=== PATIENT | male | born 1975 | race American Indian/Alaskan Native ===

== ENCOUNTER 2021-01-22 21:35 | Emergency (ER) | payer OTHER ==
--- NOTE | 2021-01-22 22:36 | Emergency Department Report ---
ED Eye Problem HPI - General Stated complaint: EYE SWELLING - History of Present Illness Initial comments: Patient is a 45-year-old -[place] male with a history of hypertension who presents to the ED with complaint of acute onset persistent painful swollen right upper eyelid due to a mild erythematous maculopapular rash for the last 4 days. Patient states that in the last 24 hours, the pain has been persistent and that the swelling has also worsened. Patient denies vision loss or changes, headache, dizziness, syncope, traumatic injury, nausea and vomiting, fever, chills, neck pain, nasal and sinus congestion, cough or sore throat. MD chief complaint: eye pain (Right upper eyelid pain and swelling) -: Sudden, days(s) (4) Onset Description: sudden, unknown, awoke with symptoms Location: right eye Place: home If Injury: none Eye Symptoms: redness, pain Severity: moderate Severity scale (0 -10): 5 If Pain, Quality: sharp, aching Consistency: constant Associated Symptoms: none. denies: headache, neck pain, nausea/vomiting, cough, rhinorrhea, fever, shortness of breath Treatments Prior to Arrival: none - Related Data Patient Tetanus UTD: Yes Previous Rx's Medication Instructions Recorded Last Taken Type Ibuprofen [Motrin] 800 mg PO Q8HR PRN #24 tablet 01/22/21 Unknown Rx Sulfamethoxazole/Trimethoprim 1 each PO Q12H #20 tablet 01/22/21 Unknown Rx [Bactrim DS TAB] ED Review of Systems ROS: Stated complaint: EYE SWELLING Other details as noted in HPI Constitutional: denies: chills, fever Eyes: eye pain (Right upper eyelid pain and swelling). denies: eye discharge, vision change ENT: denies: ear pain, throat pain Respiratory: denies: cough, shortness of breath, SOB with exertion, SOB at rest, wheezing Cardiovascular: denies: chest pain, palpitations Endocrine: no symptoms reported Gastrointestinal: denies: abdominal pain, nausea, diarrhea Genitourinary: denies: urgency, dysuria Musculoskeletal: denies: back pain, joint swelling, arthralgia Skin: rash (Swollen, painful, mildly erythematous right upper eyelid rash), change in color. denies: lesions Neurological: denies: headache, weakness, paresthesias Psychiatric: denies: anxiety, depression Hematological/Lymphatic: denies: easy bleeding, easy bruising ED Past Medical Hx - Medications Home Medications: Home Medications Medication Instructions Recorded Confirmed Last Taken Type Ibuprofen [Motrin] 800 mg PO Q8HR PRN #24 tablet 01/22/21 Unknown Rx Sulfamethoxazole/Trimethoprim 1 each PO Q12H #20 tablet 01/22/21 Unknown Rx [Bactrim DS TAB] ED Physical Exam - General General appearance: alert, in no apparent distress - Head Head exam: Present: atraumatic, normocephalic - Eye Eye exam: Present: normal appearance, PERRL, EOMI, other (Swollen, severely tender right upper eyelid due to mild erythematous maculopapular rash) Pupils: Present: normal accommodation - ENT ENT exam: Present: normal exam, normal orophraynx, mucous membranes moist, TM's normal bilaterally, normal external ear exam - Neck Neck exam: Present: normal inspection, full ROM - Respiratory Respiratory exam: Present: normal lung sounds bilaterally. Absent: respiratory distress, wheezes, rales, stridor, chest wall tenderness, accessory muscle use, decreased breath sounds, prolonged expiratory, other - Cardiovascular Cardiovascular Exam: Present: regular rate, normal rhythm, normal heart sounds. Absent: systolic murmur, diastolic murmur, rubs, gallop - GI/Abdominal GI/Abdominal exam: Present: soft, normal bowel sounds. Absent: tenderness, guarding, rebound, hyperactive bowel sounds, hypoactive bowel sounds, organomegaly - Extremities Exam Extremities exam: Present: normal inspection, full ROM, normal capillary refill - Back Exam Back exam: Present: normal inspection, full ROM. Absent: tenderness, CVA tenderness (R), CVA tenderness (L), muscle spasm, paraspinal tenderness, vertebral tenderness - Neurological Exam Neurological exam: Present: alert, oriented X3, CN II-XII intact, normal gait, reflexes normal - Psychiatric Psychiatric exam: Present: normal affect, normal mood - Skin Skin exam: Present: warm, dry, intact, normal color, rash (Swollen, tender, mildly erythematous maculopapular rash on right upper eyelid), erythema ED Medical Decision Making - Medical Decision Making This is a 45-year-old -[place] male with a history of hypertension who presents to the ED with complaint of acute onset persistent painful swollen right upper eyelid due to a mild erythematous maculopapular rash for the last 4 days. Patient states that in the last 24 hours, the pain has been persistent and that the swelling has also worsened. In the ED, patient is alert and oriented x3 and is not in any distress. Based on the history and physical exam findings, patient symptoms are likely due to acute blepharitis of the right upper eyelid. Patient was therefore discharged home on pain medications and antibiotics and advised to follow-up with his primary care physician in 5 to 7 days for reevaluation. Patient was advised return to the ED immediately if symptoms get worse. - Differential Diagnosis Cellulitis; blepharitis; folliculitis Critical care attestation.: If time is entered above; I have spent that time in minutes in the direct care of this critically ill patient, excluding procedure time. ED Disposition Clinical Impression: Cellulitis of right upper eyelid Blepharitis of eyelid of right eye Qualifiers: Blepharitis type: unspecified type Eyelid: upper Qualified Code(s): H01.001 - Unspecified blepharitis right upper eyelid Disposition: - TO HOME OR SELFCARE Is pt being admited?: No Does the pt Need Aspirin: No Condition: Stable Instructions: Skin Abscess, [id number], Blepharitis, [id number] Additional Instructions: Take medication with food, drink plenty of fluids and follow-up with your primary care physician in 5 to 7 days for reevaluation. Return to the ED immediately if symptoms get worse. Prescriptions: Sulfamethoxazole/Trimethoprim [Bactrim DS TAB] 1 each PO Q12H #20 tablet Ibuprofen [Motrin] 800 mg PO Q8HR PRN #24 tablet PRN Reason: Pain , Severe (7-10) Referrals: [facility] [Provider Group] - 7-10 days Time of Disposition: 22:37 Print Language: PARAGUAYAN
[2021-01-22 22:39] VITALS: BP 170/106
== END 2021-01-22 23:00 | disposition home or self-care (01) ==
LOC: ED 21:35
DX: H00.031 Abscess of right upper eyelid (principal); H01.001 Unspecified blepharitis right upper eyelid; Z79.899 Other long term (current) drug therapy
CPT/HCPCS: 99282